=== PATIENT | female | born 1950 | race Hispanic/Latino ===

== ENCOUNTER 2017-08-23 09:35 | Emergency (ER) | payer SELFPAY ==
[2017-08-23 10:38] LABS: Hemoglobin 13.4 g/dL (12.0-16.0); Mean Corpuscular HGB CONC 36.1 g/dL (32.0-36.0); Mean Corpuscular Hemoglobin 30.5 pg (27.0-31.0); Mean Corpuscular Volume 84.5 fL (78.0-98.0); Platelet Count 255 thou/uL (130-400); RBC Distribution Width 11.2 % (11.5-14.5); Red Blood Cell (RBC) Count 4.41 mill/uL (4.20-5.40); White Blood Cell (WBC) Count 5.9 thou/uL (4.8-10.8)
[2017-08-23 10:39] LABS: #Basophils 0.1 thou/uL (0.0-0.2); #Eosinphils 0.1 thou/uL (0.0-0.7); #Lymphocytes 2.1 thou/uL (1.20-3.40); #Monocytes 0.4 thou/uL (0.11-0.59); #Neutrophils 3.2 thou/uL (1.40-6.50); %Basophils 1.2 % (0.0-1.0); %Eosinophils 1.5 % (0.0-10.0); %Lymphocytes 36.2 % (21.0-51.0); %Monocytes 7.4 % (0.0-10.0); %Neutrophils 53.8 % (42.0-75.0); Mean Platelet Volume 6.4 fL (7.4-10.4)
[2017-08-23 10:40] LABS: INR-International Normal Ratio 2.8; Prothrombin Time 29.7 SEC (12.0-14.7)
[2017-08-23 10:46] LABS: Anion Gap 13 mmol/L (10-20); BUN (Urea Nitrogen) 11 mg/dL (9.8-20.1); Calc. Creatinine Clearance 0 mL/min (70-130); Carbon Dioxide 22 mmol/L (23-31); Chloride 112 mmol/L (98-107); Estimated GFR-MDRD 78; Potassium 3.8 mmol/L (3.5-5.1); Sodium 143 mmol/L (136-145)
[2017-08-23 10:47] LABS: ALT (SGPT) 23 U/L (8-55); AST (SGOT) 22 U/L (5-34); Alkaline Phosphatase 74 U/L (40-150); Bilirubin, Total 0.7 mg/dL (0.2-1.2); CK (CPK) 75 U/L (29-168); Calcium 9.3 mg/dL (7.8-10.44); Globulin 2.9 g/dL (2.4-3.5); Glucose 159 mg/dL (80-115); Protein, Total 6.9 g/dL (5.8-8.1)
[2017-08-23 10:49] LABS: Troponin I Less than 0.010 ng/mL (< 0.028)
--- NOTE | 2017-08-23 18:04 | RAD ---
PORTABLE CHEST: 08/23/17 An AP portable film at 0952 is compared with a 07/04/12 study. The heart is normal in size and the lungs are clear. No infiltrate or effusion was seen. There is no focal pulmonary infiltrate of concern. The mediastinum was unremarkable. IMPRESSION: No acute thoracic finding. POS: HOME
== END 2017-08-23 11:08 | disposition home or self-care (01) ==
LOC: BURERS 09:35
DX: H81.13 Benign paroxysmal vertigo, bilateral (principal); K21.9 Gastro-esophageal reflux disease without esophagitis; K29.70 Gastritis, unspecified, without bleeding; I10 Essential (primary) hypertension; Z79.899 Other long term (current) drug therapy; Z79.01 Long term (current) use of anticoagulants
CPT/HCPCS: 71045; 80053; 82553; 84484; 85025; 85610; 93005

== ENCOUNTER 2018-08-14 06:05 | Emergency (ER) | payer SELFPAY ==
[2018-08-14 06:24] LABS: Clarity Clear (Clear); Glucose, Urine (Dipstick) Negative (Negative); Leukocyte Negative (Negative); Nitrite Negative (Negative); Protein, Urine (Dipstick) Negative (Neg-Trace)
[2018-08-14 06:25] LABS: Bilirubin Negative (Negative); Blood, Urine Moderate (Negative); Urobilinogen 0.2 mg/dL (Less than 2)
[2018-08-14 06:37] LABS: Bacteria/HPF Rare-Few HPF (None Seen); Squamous Epithelial 0-3 HPF (0-3); WBC/HPF 0-3 HPF (0-3); Yeast-Budding Rare HPF (None Seen)
[2018-08-14 06:40] LABS: #Basophils 0.1 thou/uL (0.0-0.2); #Eosinphils 0.1 thou/uL (0.0-0.7); #Lymphocytes 1.8 thou/uL (1.20-3.40); #Monocytes 0.6 thou/uL (0.11-0.59); #Neutrophils 8.3 thou/uL (1.40-6.50); %Basophils 0.5 % (0.0-1.0); %Eosinophils 0.6 % (0.0-10.0); %Lymphocytes 16.9 % (21.0-51.0); %Monocytes 5.8 % (0.0-10.0); %Neutrophils 76.2 % (42.0-75.0); Hemoglobin 13.7 g/dL (12.0-16.0); Mean Corpuscular Hemoglobin 31.5 pg (27.0-31.0); Mean Corpuscular Volume 95.2 fL (78.0-98.0); Platelet Count 281 thou/uL (130-400); RBC Distribution Width 11.9 % (11.5-14.5); Red Blood Cell (RBC) Count 4.34 mill/uL (4.20-5.40); White Blood Cell (WBC) Count 10.9 thou/uL (4.8-10.8)
[2018-08-14] MEDS ORDERED: Ondansetron PF 4 MG/2 ML Vial ONE (06:41)
[2018-08-14] MEDS ORDERED: Milk Of Magnesia 30 ML UDCUP ONE (06:41)
[2018-08-14] MEDS ORDERED: Lidocaine Viscous Sol 2% 15 ml UD Cup ONE (06:41)
[2018-08-14] MEDS ORDERED: Mag-Al Plus 1200 MG/1200 MG/120 MG/30 ML UDCUP ONE (06:41)
[2018-08-14 06:55] LABS: ALT (SGPT) 25 U/L (8-55); AST (SGOT) 26 U/L (5-34); Albumin 4.4 g/dL (3.4-4.8); Alkaline Phosphatase 76 U/L (40-150); Anion Gap 14 mmol/L (10-20); BUN (Urea Nitrogen) 9 mg/dL (9.8-20.1); Bilirubin, Total 0.5 mg/dL (0.2-1.2); Calc. Creatinine Clearance 0 mL/min (70-130); Calcium 9.4 mg/dL (7.8-10.44); Carbon Dioxide 20 mmol/L (23-31); Chloride 108 mmol/L (98-107); Estimated GFR-MDRD 69; Glucose 129 mg/dL (80-115); Lipase 13 U/L (8-78); Protein, Total 7.4 g/dL (6.0-8.3); Sodium 138 mmol/L (136-145)
--- NOTE | 2018-08-14 07:30 | CT ---
CT ABDOMEN AND PELVIS WITHOUT CONTRAST: DATE: 08/14/2018. FINDINGS: Comparison is made with a 01/31/2009 study. Axial slices were done followed by coronal reconstructio ns. The lung bases are clear, except for some minimal dependent atelectasis. The liver, spleen, pancreas , adrenal glands, and abdominal aorta appear normal within the limitations of a noncontrast study. T he gallbladder contains no sign of stones. There is a large 4.8 cm cyst in the right kidney. It was present in 2008 but is much larger today. The CT numbers for it are water density at 4 units. No renal calcifications were seen. There is no hydronephrosis. The bowel shows no distention, wall thickening, or inflammatory changes. No free air or free fluid w as seen. An incidental finding was some sort of vascular stent in the left iliac vein. CT of the pelvis shows no pelvic masses, fluid collections, or inflammatory changes. There are vario us calcifications around the urinary bladder, but they all appear to be phleboliths. They seem to be largely present on the older scan, so I doubt a distal ureteral calculus. Degenerative changes are seen near the lumbosacral junction. IMPRESSION: 1. No evidence of urinary tract calculi or obstruction. 2. Large right renal cyst. This was present in 2008 but has increased in size. It might be prudent to obtain an elective renal ultrasound to be sure it is purely cystic, though I feel the odds are hi gh that it will be. 3. Incidental finding not mentioned above is a small hiatal hernia. POS: [facility]
== END 2018-08-14 07:28 | disposition home or self-care (01) ==
LOC: BURERS 06:05
DX: K29.70 Gastritis, unspecified, without bleeding (principal); K21.9 Gastro-esophageal reflux disease without esophagitis; I10 Essential (primary) hypertension; G43.909 Migraine, unspecified, not intractable, without status migrainosus; Z79.899 Other long term (current) drug therapy; Z79.01 Long term (current) use of anticoagulants
CPT/HCPCS: 36415; 74176; 80053; 81003; 81015; 83690; 84484; 85025; 93005; 96361; 96374; J2405

== ENCOUNTER 2020-08-04 21:02 | Emergency (ER) | payer SELFPAY ==
[2020-08-04 21:32] LABS: Bilirubin Small (Negative); Blood, Urine Small (Negative); Clarity Clear (Clear); Glucose, Urine (Dipstick) Negative (Negative); Ketone, Urine Negative (Negative); Leukocyte Small (Negative); Nitrite Negative (Negative); Protein, Urine (Dipstick) Negative (Neg-Trace); Specific Gravity, Urine 1.025 (1.005-1.030); Urobilinogen 0.2 mg/dL (Less than 2)
[2020-08-04] MEDS ORDERED: Famotidine In NaCl 20 mg/50 ml Premix Bag ONE (21:39)
[2020-08-04] MEDS ORDERED: Ondansetron PF 4 MG/2 ML Vial ONE (21:39)
[2020-08-04 21:50] LABS: Bacteria/HPF 1+ HPF (None Seen)
[2020-08-04 21:51] LABS: Mucous/LPF 1+ LPF (<2+); Yeast-Budding None Seen HPF (None Seen)
[2020-08-04 21:51] LABS: #Basophils 0.1 thou/uL (0.0-0.2); #Eosinphils 0.1 thou/uL (0.0-0.7); #Lymphocytes 2.3 thou/uL (1.20-3.40); #Monocytes 0.8 thou/uL (0.11-0.59); #Neutrophils 6.6 thou/uL (1.40-6.50); %Basophils 0.7 % (0.0-1.0); %Eosinophils 1.3 % (0.0-10.0); %Lymphocytes 23.4 % (21.0-51.0); %Monocytes 7.6 % (0.0-10.0); %Neutrophils 66.9 % (42.0-75.0); Hemoglobin 13.5 g/dL (12.0-16.0); Mean Corpuscular HGB CONC 34.3 g/dL (32.0-36.0); Mean Corpuscular Hemoglobin 32.5 pg (27.0-31.0); Mean Corpuscular Volume 94.8 fL (78.0-98.0); Mean Platelet Volume 6.4 fL (7.4-10.4); Platelet Count 296 thou/uL (130-400); RBC Distribution Width 10.9 % (11.5-14.5); Red Blood Cell (RBC) Count 4.16 mill/uL (4.20-5.40); White Blood Cell (WBC) Count 9.9 thou/uL (4.8-10.8)
[2020-08-04 22:05] LABS: ALT (SGPT) 36 U/L (8-55); AST (SGOT) 26 U/L (5-34); Alkaline Phosphatase 67 U/L (40-110); Anion Gap 16 mmol/L (10-20); BUN (Urea Nitrogen) 15 mg/dL (9.8-20.1); Bilirubin, Total 0.5 mg/dL (0.2-1.2); Calc. Creatinine Clearance 0 mL/min (70-130); Calcium 9.2 mg/dL (7.8-10.44); Carbon Dioxide 22 mmol/L (23-31); Chloride 105 mmol/L (98-107); Globulin 2.8 g/dL (2.4-3.5); Glucose 125 mg/dL (80-115); Lipase 19 U/L (8-78); Potassium 3.4 mmol/L (3.5-5.1); Protein, Total 6.8 g/dL (5.8-8.1); Sodium 140 mmol/L (136-145)
[2020-08-04] MEDS ORDERED: Ciprofloxacin 500 MG TAB ONE (22:33)
[2020-08-04] MEDS ORDERED: Phenazopyridine HCl 97.5 MG TABLET ONE ×2 (22:33)
== END 2020-08-04 22:41 | disposition home or self-care (01) ==
LOC: BURERS 21:02
DX: N10 Acute pyelonephritis (principal); K21.9 Gastro-esophageal reflux disease without esophagitis; Z86.73 Personal history of transient ischemic attack (TIA), and cerebral infarction without residual deficits; Z79.899 Other long term (current) drug therapy
CPT/HCPCS: 80053; 81003; 81015; 83690; 85025; 87086; 96365; 96375; J2405

== ENCOUNTER 2023-06-25 11:34 | Emergency (ER) | payer SELFPAY ==
[2023-06-25 11:56] LABS: Bilirubin Negative (Negative); Blood, Urine Small (Negative); Clarity Clear (Clear); Glucose, Urine (Dipstick) Negative (Negative); Ketone, Urine Negative (Negative); Leukocyte Negative (Negative); Nitrite Negative (Negative); Protein, Urine (Dipstick) Negative (Neg-Trace); Urobilinogen 0.2 mg/dL (Less than 2)
[2023-06-25 12:05] LABS: Bacteria/HPF Rare-Few HPF (None Seen); CAUTI Indications for Culture Dysuria,urgency,freq; WBC/HPF None Seen HPF (0-3)
[2023-06-25 12:06] LABS: Urine Culture Reflex No No
[2023-06-25] MEDS ORDERED: Morphine 4 MG/ML VIAL ONE (12:13)
[2023-06-25 12:16] LABS: #Lymphocytes 0.9 thou/uL (1.20-3.40); #Monocytes 0.5 thou/uL (0.11-0.59); #Neutrophils 8.5 thou/uL (1.40-6.50); %Basophils 0.2 % (0.0-1.0); %Eosinophils 0.2 % (0.0-10.0); %Lymphocytes 9.4 % (21.0-51.0); %Monocytes 4.5 % (0.0-10.0); %Neutrophils 85.7 % (42.0-75.0); Hematocrit 38.2 % (36.0-47.0); Hemoglobin 13.1 g/dL (12.0-16.0); Mean Corpuscular HGB CONC 34.3 g/dL (32.0-36.0); Mean Corpuscular Hemoglobin 32.2 pg (27.0-31.0); Mean Platelet Volume 6.8 fL (7.4-10.4); Platelet Count 265 10x3/uL (130-400); Red Blood Cell (RBC) Count 4.06 mill/uL (4.20-5.40); White Blood Cell (WBC) Count 9.9 10x3/uL (4.8-10.8)
[2023-06-25 12:32] LABS: ALT (SGPT) 38 U/L (8-55); AST (SGOT) 35 U/L (5-34); Albumin 3.9 g/dL (3.4-4.8); Alkaline Phosphatase 69 U/L (40-110); Anion Gap 12 mmol/L (10-20); BUN (Urea Nitrogen) 11 mg/dL (9.8-20.1); Bilirubin, Total 0.6 mg/dL (0.2-1.2); Calc. Creatinine Clearance 0 mL/min (70-130); Calcium 8.8 mg/dL (7.8-10.44); Carbon Dioxide 25 mmol/L (23-31); Chloride 104 mmol/L (98-107); Estimated GFR 81; Glucose 109 mg/dL (83-110); Lipase 13 U/L (8-78); Potassium 3.5 mmol/L (3.5-5.1); Protein, Total 6.9 g/dL (5.8-8.1); Sodium 137 mmol/L (136-145)
== END 2023-06-25 13:49 | disposition home or self-care (01) ==
LOC: BURERS 11:34
DX: R10.9 Unspecified abdominal pain (principal); I10 Essential (primary) hypertension
CPT/HCPCS: 36415; 74176; 80053; 81001; 83605; 83690; 85025; 96372; J2270